=== PATIENT | male | born 1980 | race African-American/Black ===

== ENCOUNTER 2017-12-01 23:52 | Emergency (ER) | payer OTHER ==
[~2017-12-01] VITALS: Ht 185.4 cm; Wt 88.5 kg
[2017-12-01 23:59] VITALS: BP 164/108
== END 2017-12-02 00:10 | disposition left against medical advice (07) ==
LOC: M.ERS 23:52
DX: F10.10 Alcohol abuse, uncomplicated (principal); R11.0 Nausea; R68.84 Jaw pain